=== PATIENT | male | born 1975 | race Caucasian/White ===

== ENCOUNTER 2020-05-21 12:57 | Outpatient (RCR) | payer BC, SELFPAY ==
[2014-04-07 21:14] VITALS: BMI 28.5
== END 2020-07-27 23:59 ==
LOC: IMMUN 12:57
PROVIDERS: PCP Family Medicine; Visit Provider Family Medicine
DX: Z23 Encounter for immunization (principal)
CPT/HCPCS: 0001A; 0002A; 91300